=== PATIENT | female | born 1965 | race Caucasian/White ===

== ENCOUNTER 2019-06-28 14:34 | Emergency (ER) | payer OTHER ==
[2019-06-28 14:47] VITALS: BP 110/87; PULSE 81; TEMP 98; BMI 40.2
--- NOTE | 2019-06-28 15:03 | PDOC ---
History of Present Illness - General Chief Complaint: Injury Stated Complaint: RT. ANKLE PAIN Time Seen by Provider: 06/28/19 14:50 History Source: Patient Exam Limitations: Clinical Condition - History of Present Illness Initial Comments: 06/28/19 15:05 Morbid obese patient with history of right ankle fracture presented for evaluation of swelling to right ankle which has been persistent for a few days. Patient reported had right tibial fracture 2 months ago and was seen by orthopedics and was in a cast for 6 weeks and also postop boot for 4 weeks which was removed a few days ago and now has been having mild swelling to right ankle with intermittent redness to skin. Patient report calling orthopedics for symptoms and was told symptoms likely from prolonged standing as patient has been walking a lot the past few days due to 's sickness and was advised to wear postop boots but came in for evaluation to make sure everything was fine as she was already in the hospital. Denies numbness and tingling sensation. Denies fever, chills. Denies any other symptoms Is this a multiple visit Asthma Patient?: No Timing/Duration: 1 week Past History - Past Medical History Allergies/Adverse Reactions: Allergies Allergy/AdvReac Type Severity Reaction Status Date / Time cephalexin monohydrate Allergy Verified 06/28/19 14:37 [From Keflex] sulfamethoxazole Allergy Verified 06/28/19 14:37 [From Bactrim] Home Medications: Ambulatory Orders Ibuprofen [Motrin -] 600 mg PO TID PRN #21 tablet 11/17/15 Levothyroxine [Synthroid -] 50 mcg PO DAILY 11/17/15 traMADol HCL [Ultram -] 50 mg PO Q6H PRN #12 tablet MDD 4 tabs 11/17/15 Cancer: Yes (BREAST) COPD: No Thyroid Disease: Yes (HASHIMODOS) - Psycho Social/Smoking Cessation Hx Smoking Status: No Smoking History: Never smoked Number of Cigarettes Smoked Daily: 0 Hx Alcohol Use: No Drug/Substance Use Hx: No Substance Use Type: None Review of Systems - Review of Systems Able to Perform ROS?: Yes Is the patient limited Persian proficient: No Constitutional: No: Chills, Fever, Malaise HEENTM: No: Symptoms Reported Respiratory: No: Symptoms reported, See HPI, Cough, Orthopnea, Shortness of Breath, SOB with Exertion, SOB at Rest, Stridor, Wheezing, Productive cough, Hemoptysis, Other Cardiac (ROS): No: Symptoms Reported, See HPI, Chest Pain, Edema, Irregular Heart Rate, Lightheadedness, Palpitations, Syncope, Chest Tightness, Other ABD/GI: No: Symptoms Reported Musculoskeletal: Yes: Symptoms Reported, See HPI, Joint Swelling (right ankle), Muscle Pain (right ankle). No: Muscle Weakness Integumentary: Yes: Symptoms Reported, See HPI, Erythema (mild redness to right lower leg) Neurological: No: Symptoms reported, Numbness, Paresthesia, Tingling, Weakness All Other Systems: Reviewed and Negative *Physical Exam - Vital Signs Last Vital Signs Temp Pulse Resp BP Pulse Ox 98 F 81 18 110/87 98 06/28/19 14:37 06/28/19 14:37 06/28/19 14:37 06/28/19 14:37 06/28/19 14:37 - Physical Exam General Appearance: Yes: Nourished, Appropriately Dressed. No: Apparent Distress HEENT: positive: Normal ENT Inspection Neck: positive: Supple Respiratory/Chest: positive: Lungs Clear, Normal Breath Sounds. negative: Respiratory Distress, Accessory Muscle Use Musculoskeletal: positive: Other (mild erythema over lateral aspect of right ankle over ankle edema. no calf muscle tenderness. negative horman's sign) Extremity: positive: Normal Capillary Refill, Swelling (mild b/l peripheral ankle edema) Integumentary: positive: Erythema (mild blanching erythema to lateral aspect of right ankle with mild ankle edema). negative: Warm (no increased warmth to ankle or calf LE), Ecchymosis, Bruising Neurologic: positive: Fully Oriented, Alert, Normal Mood/Affect, Normal Response , Motor Strength 5/5 Medical Decision Making - Medical Decision Making 06/28/19 15:07 Morbid obese patient with history of right ankle fracture presented for evaluation of swelling to right ankle which has been persistent for a few days. Patient reported had right tibial fracture 2 months ago and was seen by orthopedics and was in a cast for 6 weeks and also postop boot for 4 weeks which was removed a few days ago and now has been having mild swelling to right ankle with intermittent redness to skin. Patient report calling orthopedics for symptoms and was told symptoms likely from prolonged standing as patient has been walking a lot the past few days due to 's sickness and was advised to wear postop boots but came in for evaluation to make sure everything was fine as she was already in the hospital. Denies numbness and tingling sensation. Denies fever, chills. Denies any other symptoms Exam significant for mild pitting edema to bilateral lower extremity. Mild increased erythema to medial aspect of right lower leg. No increased warmth to area. No calf muscle tenderness. No open wounds. Patient symptoms likely venous stasis from peripheral edema. Patient advised to continue using postop boots as instructed by orthopedics and advised to use hot compress as needed for swelling. Patient educated on AEBLINO stockings which patient report has at home and will use for swelling. Patient stable for discharge orthopedics follow-up Discharge - Discharge Information Problems reviewed: Yes Clinical Impression/Diagnosis: Ankle edema, Peripheral edema Condition: Stable Disposition: HOME - Admission No - Follow up/Referral Referrals: Lalo Bhatt MD [Primary Care Provider] - - Patient Discharge Instructions Patient Printed Discharge Instructions: DI for Ankle Sprain Additional Instructions: symptoms likely caused by ankle swelling. Keep using home boots as given by orthopedics. Keep right leg elevated and apply warm compress as needed for swelling. Use home ABELINO stockings to help with swelling. Follow-up with your orthopedics - Post Discharge Activity
== END 2019-06-28 15:13 | disposition home or self-care (01) ==
LOC: JERFT 14:34 → JER 14:34 → JERFT 15:13
DX: R60.9 Edema, unspecified (principal); S82.891D Other fracture of right lower leg, subsequent encounter for closed fracture with routine healing; X58.XXXD Exposure to other specified factors, subsequent encounter; Z88.2 Allergy status to sulfonamides; Z88.1 Allergy status to other antibiotic agents
CPT/HCPCS: 99281-25